=== PATIENT | male | born 1985 | race Caucasian/White ===

== ENCOUNTER 2018-12-01 16:49 | Emergency (ER) | payer SELFPAY ==
[~2018-12-01] VITALS: Ht 167.6 cm; Wt 81.8 kg
[~2018-12-01 16:49] MED LIST: AMOX1TAB10 PO; IBUP-1542 PO; TRAM50TA2 PO
[2018-12-01 16:55] VITALS: BP 144/78; PULSE 109; RESP 18; Ht 167.6 cm; Wt 81.8 kg
== END 2018-12-01 20:53 | disposition left against medical advice (07) ==
LOC: FTE 16:49
DX: Z53.21 Procedure and treatment not carried out due to patient leaving prior to being seen by health care provider (principal)

== ENCOUNTER 2019-05-06 12:35 | Emergency (ER) | payer SELFPAY ==
[~2019-05-06] VITALS: Ht 172.7 cm; Wt 87.4 kg
[~2019-05-06 12:35] MED LIST changes: +LORA-441 PO
[2019-05-06 12:55] VITALS: Ht 172.7 cm; Wt 87.4 kg
[2019-05-06] MEDS ORDERED: LORAZEPAM 1 MG TAB PO ONE (13:30)
[2019-05-06 14:30] VITALS: BP 130/76; PULSE 88; RESP 20
== END 2019-05-06 14:30 | disposition home or self-care (01) ==
LOC: FTE 12:35
DX: R07.89 Other chest pain (principal); F41.9 Anxiety disorder, unspecified
CPT/HCPCS: 71045; 80048; 84484; 85025; 85378; 93005